=== PATIENT | male | born 1965 | race Caucasian/White ===

== ENCOUNTER 2021-09-17 19:53 | Inpatient (IN) | payer SELFPAY ==
[~2021-09-17] VITALS: Ht 162.6 cm; Wt 71.7 kg
[2021-09-17] MEDS ORDERED: LORazepam 2 MG/ML VIAL IM ONE (20:00)
[2021-09-17] MEDS ORDERED: DIPHENHYDRAMINE INJ 50 MG/ML VIAL IM ONE (20:00)
[2021-09-17] MEDS ORDERED: PHENYTOIN SODIUM INJ 1,000 MG in NS 100 ML IV ONE (20:00)
[2021-09-17] MEDS ORDERED: HALOPERIDOL LACTATE 5 MG/ML VIAL IM ONE ×2 (20:00)
[2021-09-17] MEDS ORDERED: LORazepam 2 MG/ML VIAL ONE (20:06)
[2021-09-17] MEDS ORDERED: HALOPERIDOL LACTATE 5 MG/ML VIAL ONE (20:06)
[2021-09-17] MEDS ORDERED: DIPHENHYDRAMINE INJ 50 MG/ML VIAL ONE (20:07)
[2021-09-17 20:23] VITALS: BP_SYST 156
--- NOTE | 2021-09-17 20:23 | NUR ---
Placed in room 05 . Placed on alarm security or surveillance monitor, blood pressure machine and pulse oximeter. To gown for exam. Side rails up.
--- NOTE | 2021-09-17 20:24 | NUR ---
Patient brought in ALS for 3 witnessed seizures today by son. Vitals Sign WNL. BS 144. Patient is AO x 1 and repeatedly saying "Can you open my ears please?" No other complaints/injuries per patient or as noted.
--- NOTE | 2021-09-17 20:25 | NUR ---
ER Dr. Acosta at bedside examining patient.
--- NOTE | 2021-09-17 20:35 | NUR ---
# 22 gauge angiocath placed to RIGHT HAND. Use of asceptic technique. Opsite placed over site. Blood return noted. Blood for lab drawn from site. Flushed with 10 cc of normal saline. No evidence of infiltration noted. Patient tolerated well.
[2021-09-17] MEDS ORDERED: PHENYTOIN SODIUM 250 MG/5 ML INJ. VIAL IV ONE (20:39)
[2021-09-17 21:11] LABS: CALCIUM 8.7 mg/dL (8.4-11.0); CREATININE 1.04 mg/dL (0.55-1.30); POTASSIUM 3.7 mmol/L (3.5-5.1)
--- NOTE | 2021-09-17 22:03 | NUR ---
returned back from ct scan. Patient tolerated well
--- NOTE | 2021-09-17 22:10 | NUR ---
Patient pulled out IV line and urinated in bed. Patient changed and placed back in [facility]. notified.
[2021-09-17] MEDS ORDERED: PHEN100C4 PO (22:51)
--- NOTE | 2021-09-17 22:52 | NUR ---
Medication reconciliation completed with information provided by son. Any prior medication reconciliation on file was reviewed and corrected.
--- NOTE | 2021-09-17 22:52 | NUR ---
patient is full code.
[2021-09-17 23:06] LABS: BASOPHILS % (AUTO) 0.2 % (0.0-2.0); EOSINOPHILS % (AUTO) 0.1 % (0.0-4.0); HEMATOCRIT 43.3 % (36-54); HEMOGLOBIN 13.9 g/dL (14.0-18.0); LYMPHOCYTES # (AUTO) 0.8 K/uL (1.0-5.5); LYMPHOCYTES % (AUTO) 4.8 % (20.5-51.5); MEAN CORPUSCULAR HEMOGLOBIN 29 pg (27-31); MEAN CORPUSCULAR HGB CONC 32 % (32-36); MEAN CORPUSCULAR VOLUME 89 fL (79.0-98.0); MONOCYTES # (AUTO) 0.8 K/uL (0.0-1.0); MONOCYTES % (AUTO) 4.6 % (1.7-9.3); NEUTROPHILS # (AUTO) 14.9 K/uL (1.8-7.7); NEUTROPHILS % (AUTO) 90.3 % (40.0-70.0); PLATELET COUNT (AUTO) 246 K/uL (130-430); RED BLOOD CELL COUNT(AUTO) 4.88 MIL/uL (4.2-6.2); RED CELL DISTRIBUTION WIDTH 14.2 % (9.0-15.0); WHITE BLOOD COUNT (AUTO) 16.5 K/uL (4.8-10.8)
[2021-09-17 23:10] LABS: ALCOHOL, BLOOD < 3 mg/dL (<10)
--- NOTE | 2021-09-17 23:48 | NUR ---
Patient will be admitted to care of Dr. Phoenix. Admitted to telemetry unit. bed placement pending. Complete and up to date summary report printed. SBAR report to be given at bedside with opportunity for questions.
--- NOTE | 2021-09-18 00:18 | NUR ---
After Multiple attempts to place IV, Patient unable to sit still. MD notified. Ativan 2 mg IM ordered by Dr. Jackson.
[2021-09-18] MEDS ORDERED: LORazepam 2 MG/ML VIAL IVP ONE (00:30)
[2021-09-18] MEDS ORDERED: LORazepam 2 MG/ML VIAL IM ONE (00:30)
--- NOTE | 2021-09-18 00:42 | NUR ---
# 22 gauge angiocath placed to LT HAND. Use of asceptic technique. Opsite placed over site. Blood return noted. Blood for lab drawn from site. Flushed with 10 cc of normal saline. No evidence of infiltration noted. Patient tolerated well.
--- NOTE | 2021-09-18 00:45 | NUR ---
PATIENT ARRIVED WITH NO BELONGINGS ONLY WEARING RED PLAID BOXERS. Addendum: 09/18/21 at 0045 by SDEDCJM AND AVELAR BLANKET
--- NOTE | 2021-09-18 00:50 | NUR ---
PATIENT IS AOX3. ABLE TO FOLLOW COMMANDS.
--- NOTE | 2021-09-18 00:59 | NUR ---
Transfer to [facility] via ACLS protocol. Licensed nurse present. IV present no signs or symptoms of infiltration.
--- NOTE | 2021-09-18 01:33 | NUR ---
ADMIT NOTE Received pt from ER to the floor with a diagnosis of SEIZURE DISORDER. Admission process initiated. patient oriented to pain management, safety and call light-teach back done.
[2021-09-18] MEDS: D5/0.45 NS 1,000 ML IV SCH ×2 (01:40→11:46)
[2021-09-18 01:49] VITALS: BP_SYST 106
--- NOTE | 2021-09-18 05:22 | NUR ---
Consultation Paged Reason for Consultation: seizure disorder Was consult called: Y Person who was notified: Dr. Man text message Consulting Physician: Dr. Man Ordering Physician: Jr Samson
--- NOTE | 2021-09-18 06:52 | NUR ---
CLOSING NOTES Patient resting in bed - no s/s pain or distress noted. Respirations even and unlabored - head of bed elevated. IV site patent - no s/s redness, infection, or infiltration. Seizure precautions in place. Bed locked and in lowest position. Call light within reach - bed alarm on.
--- NOTE | 2021-09-18 07:45 | NUR ---
Opening Notes Patient is awake, alert and oriented x3. No resp distress noted. Breathing is even and unlabored. Pt remains on RA at this time. Seizure precautions in place. No noted seizure activity. Pt denies any pain at this time. IV site on left hand 22 gauge intact at this time. D5 1/2 NS @ 100 cc/hr, infusing well at this time. Pt is ambulatory, steady gait. Pt remains NPO at this time. Scheduled swallow evaluation. All needs met at this time. Safety and fall precautions in place. Bed in lowest position, locked. Will continue to monitor.
[2021-09-18 08:00] VITALS: BP_SYST 136
[2021-09-18] MEDS ORDERED: LORazepam 2 MG/ML VIAL IM PRN (08:15)
--- NOTE | 2021-09-18 09:15 | NUR ---
Nurse updated Melecio cassidy on patient status and plan of care. Melecio (Randal) [phone]
--- NOTE | 2021-09-18 10:00 | NUR ---
Notes Patient is sleeping at this time. No resp distress noted. No signs of seizure activity. Denies any pain. Will continue to monitor.
[2021-09-18 11:34] VITALS: BP_SYST 116
[2021-09-18 11:37] VITALS: BP_SYST 121
--- NOTE | 2021-09-18 12:00 | NUR ---
Notes Patient is sleeping at this time. No resp distress noted. No signs of seizure activity. Denies any pain. Will continue to monitor.
[2021-09-18 12:14] LABS: BASOPHILS # (AUTO) 0.1 K/uL (0.0-0.2); BASOPHILS % (AUTO) 0.7 % (0.0-2.0); EOSINOPHILS # (AUTO) 0.2 K/uL (0.0-0.4); EOSINOPHILS % (AUTO) 1.6 % (0.0-4.0); HEMATOCRIT 42.9 % (36-54); HEMOGLOBIN 14.4 g/dL (14.0-18.0); LYMPHOCYTES # (AUTO) 2.3 K/uL (1.0-5.5); LYMPHOCYTES % (AUTO) 24.1 % (20.5-51.5); MEAN CORPUSCULAR HEMOGLOBIN 29 pg (27-31); MEAN CORPUSCULAR HGB CONC 34 % (32-36); MEAN CORPUSCULAR VOLUME 87 fL (79.0-98.0); MONOCYTES # (AUTO) 0.9 K/uL (0.0-1.0); NEUTROPHILS # (AUTO) 6.2 K/uL (1.8-7.7); NEUTROPHILS % (AUTO) 64.6 % (40.0-70.0); PLATELET COUNT (AUTO) 219 K/uL (130-430); RED BLOOD CELL COUNT(AUTO) 4.92 MIL/uL (4.2-6.2); WHITE BLOOD COUNT (AUTO) 9.6 K/uL (4.8-10.8)
[2021-09-18 12:32] LABS: ALBUMIN 3.5 g/dL (3.4-4.8); BILIRUBIN,DIRECT 0.1 mg/dL (0.0-0.3); CALCIUM 7.9 mg/dL (8.4-11.0); CREATININE 0.89 mg/dL (0.55-1.30); POTASSIUM 3.3 mmol/L (3.5-5.1); TOTAL BILIRUBIN 0.5 mg/dL (0.0-1.0)
--- NOTE | 2021-09-18 14:00 | NUR ---
Notes Patient is awake, alert and oriented x4. No resp distress noted. No signs of seizure activity. Denies any pain. Pt remains NPO. Will continue to monitor.
--- NOTE | 2021-09-18 14:53 | NUR ---
Nutrition Update : Yaakov Scale: 16 noted Pt admitted for Seizure disorder. Diet: NPO BMI: 27.1 kg/m2 RD to follow per nutrition care standards.
[2021-09-18 15:27] VITALS: BP_SYST 116
--- NOTE | 2021-09-18 16:00 | NUR ---
Notes Patient is awake, alert and oriented x4, anxious to go home. No resp distress noted. Breathing is even and unlabored. No signs of pain. Will continue to monitor.
--- NOTE | 2021-09-18 16:21 | NUR ---
ST EVALUATION COMPLETED. ST TX NOT INDICATED AT THIS TIME. RECOMMEND DIET UPGRADE TO PO DIET OF MECHANICAL SOFT/THIN LIQUIDS.
[2021-09-18] MEDS ORDERED: ACETAMINOPHEN 325 MG TABLET PO PRN (18:00)
[2021-09-18] MEDS ORDERED: NALOXONE HCL 0.4 MG/ML AMP (NARCAN) IVP PRN ×2 (18:00)
[2021-09-18] MEDS ORDERED: ONDANSETRON HCL 4 MG/2 ML VIAL IVP PRN (18:00)
[2021-09-18] MEDS ORDERED: HYDROcodone/ACETAMIN 10-325 MG TAB PO PRN (18:00)
[2021-09-18] MEDS ORDERED: HYDROcodone/ACETAMIN 5-325 MG TAB (NORCO/ VICODIN) PO PRN (18:00)
--- NOTE | 2021-09-18 18:00 | NUR ---
iv insertion primary rn makenzie requested for iv insertion. new iv line started on rt hand #22. with good blood return. flushed well. no s/s of infiltration noted. pt tolerated well.
--- NOTE | 2021-09-18 18:03 | NUR ---
Patient is being seen and examined by DR. MARTÍNEZ
--- NOTE | 2021-09-18 18:55 | NUR ---
Closing Notes Patient is awake, alert and oriented x4. Seizure precautions in place, No resp distress noted. Breathing is even and unlabored. Pt denies any pain at this time. Resumed diet: mechanical soft, tolerating well. IV site on right FA 22 gauge intact at this time. D5 1/2 NS @ 100 cc/hr, infusing well at this time. Pt is ambulatory, steady gait. All needs met at this time. Safety and fall precautions in place. Bed in lowest position, locked. Will continue to monitor.
[2021-09-18 20:00] VITALS: BP_SYST 121
[2021-09-18] MEDS ORDERED: PHENYTOIN 100 MG CAPSULE PO SCH (21:00)
[2021-09-18] MEDS ORDERED: NORMAL SALINE 5 ML DISP.SYRIN IVF SCH ×2 (22:00)
--- NOTE | 2021-09-18 22:24 | NUR ---
Patient informed primary RN wanted to leave hospital AMA. Dr. Phoenix paged and informed. No discharge order given. Patient can leave AMA.
--- NOTE | 2021-09-18 22:43 | NUR ---
Earlier, pt's son arrived at hospital to p/u father for d/c home ama. Pt's son aware that his father "forgot" to take medications and consequently had seizures at home. Pt's son encouraged to put emphasis on taking routine medications as ordered and not leaving the possibility of forgetting as a option. Pt campus monitor and saline lock removed. Pt changed into own clothing. All belongings, including cell phone, are in pt's possession. Pt signed AMA document (placed in chart) and then brought to son's private vehicle. Pt left hospital under own power and in stable condition.
== END 2021-09-18 22:40 | disposition left against medical advice (07) | DRG 101 ==
LOC: SED 19:53 → STU 23:45
PROVIDERS: ADMIT Preventive Medicine Preventive Medicine/Occupational Environmental Medicine; ATTEND Preventive Medicine Preventive Medicine/Occupational Environmental Medicine
DX: G40.909 Epilepsy, unspecified, not intractable, without status epilepticus (principal); D72.829 Elevated white blood cell count, unspecified; R73.9 Hyperglycemia, unspecified; Z20.822 Contact with and (suspected) exposure to COVID-19; Z91.19 Patient's noncompliance with other medical treatment and regimen
CPT/HCPCS: 36415; 70450-TC; 76376; 80048; 80053; 80061; 80185; 82248; 83036; 83735; 85025; 92610-GN; 93005; 96365; 96372; 99285; G0378; G0482; J1165; J1200; J1630; J2060

== ENCOUNTER 2022-03-19 12:25 | Emergency (ER) | payer SELFPAY ==
[~2022-03-19] VITALS: Ht 167.6 cm; Wt 68.0 kg
[~2022-03-19 12:25] MED LIST: PHEN100C4 PO
[2022-03-19 12:35] VITALS: BP_SYST 106
--- NOTE | 2022-03-19 12:35 | NUR ---
Patient to ER bed 4 to gown for evaluation. Side rails up.
[2022-03-19] MEDS ORDERED: LORazepam 2 MG/ML VIAL ONE (12:39)
[2022-03-19] MEDS ORDERED: HALOPERIDOL LACTATE 5 MG/ML VIAL ONE (12:40)
[2022-03-19] MEDS ORDERED: PHENYTOIN 100 MG CAPSULE PO ONE (13:15)
[2022-03-19 13:43] LABS: BASOPHILS # (AUTO) 0.1 K/uL (0.0-0.2); BASOPHILS % (AUTO) 0.4 % (0.0-2.0); EOSINOPHILS % (AUTO) 0.4 % (0.0-4.0); HEMATOCRIT 43.2 % (36-54); HEMOGLOBIN 14.2 g/dL (14.0-18.0); LYMPHOCYTES # (AUTO) 1.3 K/uL (1.0-5.5); LYMPHOCYTES % (AUTO) 10.5 % (20.5-51.5); MEAN CORPUSCULAR HEMOGLOBIN 29 pg (27-31); MEAN CORPUSCULAR HGB CONC 33 % (32-36); MEAN CORPUSCULAR VOLUME 87 fL (79.0-98.0); MONOCYTES # (AUTO) 0.6 K/uL (0.0-1.0); NEUTROPHILS % (AUTO) 83.7 % (40.0-70.0); PLATELET COUNT (AUTO) 210 K/uL (130-430); RED BLOOD CELL COUNT(AUTO) 4.98 MIL/uL (4.2-6.2); RED CELL DISTRIBUTION WIDTH 15.1 % (9.0-15.0); WHITE BLOOD COUNT (AUTO) 11.9 K/uL (4.8-10.8)
[2022-03-19 13:52] LABS: ANION GAP 13 (5-15); CALCIUM 8.7 mg/dL (8.4-11.0); CHLORIDE 104 mmol/L (98-107); CREATININE 0.88 mg/dL (0.55-1.30); GLUCOSE 113 mg/dL (70-99); POTASSIUM 3.5 mmol/L (3.5-5.1); SODIUM SERUM 136 mmol/L (136-145); UREA NITROGEN, BLOOD 15 mg/dL (8-21)
[2022-03-19 13:57] LABS: ALANINE AMINOTRANSFERASE 48 U/L (12-78); ALBUMIN 3.8 g/dL (3.4-4.8); ASPARTATE AMINOTRANSFERASE 57 U/L (10-37); TOTAL BILIRUBIN 0.4 mg/dL (0.0-1.0)
[2022-03-19 14:22] LABS: ALCOHOL, BLOOD < 3 mg/dL (<10); GFR AFRICAN AMERICAN 116 mL/min (>90)
[2022-03-19 14:48] VITALS: BP_SYST 128
== END 2022-03-19 15:14 | disposition home or self-care (01) ==
LOC: SED 12:25
DX: R56.9 Unspecified convulsions (principal); Z91.14 Patient's other noncompliance with medication regimen; Z79.899 Other long term (current) drug therapy
CPT/HCPCS: 36415; 80053; 85025; 99283; G0482; J1630; J2060

== ENCOUNTER 2022-05-20 08:25 | Emergency (ER) | payer MEDICAID ==
[~2022-05-20] VITALS: Ht 162.6 cm; Wt 68.0 kg
[2022-05-20] MEDS ORDERED: NACL 0.9% 1,000 ML IV ONE (08:30)
[2022-05-20] MEDS ORDERED: PHENYTOIN SODIUM INJ 1,000 MG in NS 100 ML IV ONE (08:30)
[2022-05-20 08:31] VITALS: BP_SYST 124
[2022-05-20 08:47] LABS: BASOPHILS # (AUTO) 0.1 K/uL (0.0-0.2); BASOPHILS % (AUTO) 0.6 % (0.0-2.0); EOSINOPHILS # (AUTO) 0.3 K/uL (0.0-0.4); EOSINOPHILS % (AUTO) 2.7 % (0.0-4.0); HEMATOCRIT 43.3 % (36-54); HEMOGLOBIN 14.4 g/dL (14.0-18.0); LYMPHOCYTES # (AUTO) 2.2 K/uL (1.0-5.5); LYMPHOCYTES % (AUTO) 21.8 % (20.5-51.5); MEAN CORPUSCULAR HEMOGLOBIN 29 pg (27-31); MEAN CORPUSCULAR HGB CONC 33 % (32-36); MEAN CORPUSCULAR VOLUME 87 fL (79.0-98.0); MONOCYTES % (AUTO) 9.9 % (1.7-9.3); NEUTROPHILS # (AUTO) 6.7 K/uL (1.8-7.7); PLATELET COUNT (AUTO) 209 K/uL (130-430); RED CELL DISTRIBUTION WIDTH 14.3 % (9.0-15.0); WHITE BLOOD COUNT (AUTO) 10.2 K/uL (4.8-10.8)
[2022-05-20 09:00] LABS: ANION GAP 13 (5-15); CALCIUM 8.3 mg/dL (8.4-11.0); CHLORIDE 102 mmol/L (98-107); CREATININE 1.05 mg/dL (0.55-1.30); GLUCOSE 115 mg/dL (70-99); POTASSIUM 3.2 mmol/L (3.5-5.1); SODIUM SERUM 134 mmol/L (136-145); UREA NITROGEN, BLOOD 17 mg/dL (8-21)
[2022-05-20 09:06] LABS: ALANINE AMINOTRANSFERASE 25 U/L (12-78); ALBUMIN 3.4 g/dL (3.4-4.8); ASPARTATE AMINOTRANSFERASE 26 U/L (10-37); TOTAL BILIRUBIN 0.2 mg/dL (0.0-1.0)
[2022-05-20 09:09] LABS: ALCOHOL, BLOOD < 3 mg/dL (<10); GFR AFRICAN AMERICAN 94 mL/min (>90)
[2022-05-20 10:51] VITALS: BP_SYST 109
[2022-05-20] MEDS ORDERED: PHEN100C4 PO (11:17)
== END 2022-05-20 11:26 | disposition home or self-care (01) ==
LOC: SED 08:25
DX: G40.909 Epilepsy, unspecified, not intractable, without status epilepticus (principal); Z79.899 Other long term (current) drug therapy
CPT/HCPCS: 99284; 96365; 80053; 85025; 36415; G0482; J1165

== ENCOUNTER 2022-11-08 07:50 | Emergency (ER) | payer SELFPAY ==
[~2022-11-08] VITALS: Ht 165.1 cm; Wt 680.4 kg
--- NOTE | 2022-11-08 07:50 | NUR ---
PATIENT BIBA TO BED 5 S/P SEIZURE REPORTED BY EMS WITH SOME UNCORAPORATION, PATIENT AAOX4 AT THIS TIME AWAITING FOR EDP FOR INITIAL ASSESSMENT.
--- NOTE | 2022-11-08 07:52 | NUR ---
EDP AT BEDSIDE FOR INITIAL ASSESSMENT.
[2022-11-08 07:55] VITALS: BP_SYST 142
[2022-11-08] MEDS ORDERED: PHENYTOIN SODIUM INJ 500 MG in NS 100 ML IV ONE (08:00)
[2022-11-08] MEDS ORDERED: LORazepam 2 MG/ML VIAL IVP ONE (08:00)
[2022-11-08] MEDS ORDERED: NACL 0.9% 1,000 ML IV ONE (08:00)
[2022-11-08] MEDS ORDERED: PHENYTOIN SODIUM 250 MG/5 ML INJ. VIAL IV ONE (08:21)
[2022-11-08 08:56] LABS: BASOPHILS % (AUTO) 0.4 % (0.0-2.0); EOSINOPHILS # (AUTO) 0.1 K/uL (0.0-0.4); EOSINOPHILS % (AUTO) 0.9 % (0.0-4.0); HEMATOCRIT 42.1 % (36-54); HEMOGLOBIN 14.2 g/dL (14.0-18.0); LYMPHOCYTES # (AUTO) 1.2 K/uL (1.0-5.5); LYMPHOCYTES % (AUTO) 14.4 % (20.5-51.5); MEAN CORPUSCULAR HEMOGLOBIN 29 pg (27-31); MEAN CORPUSCULAR HGB CONC 34 % (32-36); MEAN CORPUSCULAR VOLUME 87 fL (79.0-98.0); MONOCYTES # (AUTO) 0.5 K/uL (0.0-1.0); MONOCYTES % (AUTO) 6.6 % (1.7-9.3); NEUTROPHILS # (AUTO) 6.3 K/uL (1.8-7.7); NEUTROPHILS % (AUTO) 77.7 % (40.0-70.0); PLATELET COUNT (AUTO) 222 K/uL (130-430); RED BLOOD CELL COUNT(AUTO) 4.84 MIL/uL (4.2-6.2); RED CELL DISTRIBUTION WIDTH 13.9 % (9.0-15.0); WHITE BLOOD COUNT (AUTO) 8.1 K/uL (4.8-10.8)
[2022-11-08 09:31] LABS: CALCIUM 8.2 mg/dL (8.4-11.0); CREATININE 0.99 mg/dL (0.55-1.30)
[2022-11-08 09:35] LABS: ALBUMIN 4.1 g/dL (3.4-4.8); PHENYTOIN (DILANTIN) 10.4 ug/mL (10.0-20.0); TOTAL BILIRUBIN 0.5 mg/dL (0.0-1.0)
--- NOTE | 2022-11-08 10:00 | NUR ---
SON PHONE NUMBER [phone]
--- NOTE | 2022-11-08 10:22 | NUR ---
PATIENT CALM IN BED, REPOSITIONNED, WILL CONTINUE TO MONITOR.
[2022-11-08] MEDS ORDERED: PHEN100C4 PO (11:14)
--- NOTE | 2022-11-08 11:19 | NUR ---
[facility] Report filed and faxed to [phone].
--- NOTE | 2022-11-08 11:22 | NUR ---
PER DR GORDON, FAXED OVER [employer] REPORT FORM TO [phone]
--- NOTE | 2022-11-08 11:35 | NUR ---
ALL RESULT BACK EDP REASSESS PATIENT AND D/C HOME WITH INSTRUCTION, SON CALLED TO PICK HIM UP.
--- NOTE | 2022-11-08 12:47 | NUR ---
Patient given written and verbal discharge instructions and verbalizes understanding. ER MD discussed with patient the results and treatment provided. Patient in stable condition. ID arm band removed. IV catheter removed intact and dressing applied, no active bleeding. Rx of PHENYTOIN given. Patient educated on pain management and to follow up with PMD. Pain Scale 0. Opportunity for questions provided and answered. Medication side effect fact sheet provided.
== END 2022-11-08 12:47 | disposition home or self-care (01) ==
LOC: SED 07:50
DX: G40.509 Epileptic seizures related to external causes, not intractable, without status epilepticus (principal); Z79.899 Other long term (current) drug therapy
CPT/HCPCS: 99285; 96365; 70450; 96375; 80053; 80185; 85025; 36415; 93005; 76376; G0482; J2060; J1165

== ENCOUNTER 2023-02-03 03:28 | Emergency (ER) | payer SELFPAY ==
[~2023-02-03] VITALS: Ht 170.2 cm; Wt 63.5 kg
[2023-02-03 03:32] VITALS: BP_SYST 120
[2023-02-03] MEDS ORDERED: HALOPERIDOL LACTATE 5 MG/ML VIAL ONE (03:39)
[2023-02-03] MEDS ORDERED: DIPHENHYDRAMINE INJ 50 MG/ML VIAL ONE (03:40)
[2023-02-03] MEDS ORDERED: LORazepam 2 MG/ML VIAL ONE (03:41)
[2023-02-03] MEDS ORDERED: LORazepam 2 MG/ML VIAL IM ONE (03:45)
[2023-02-03] MEDS ORDERED: HALOPERIDOL LACTATE 5 MG/ML VIAL IM ONE (03:45)
[2023-02-03] MEDS ORDERED: DIPHENHYDRAMINE INJ 50 MG/ML VIAL IM ONE (03:45)
[2023-02-03] MEDS ORDERED: levETIRAcetam 1,000 MG IV BAG 100 ML IV ONE (04:15)
[2023-02-03] MEDS: levETIRAcetam 500 MG TABLET PO ONE (05:00)
[2023-02-03] MEDS ORDERED: LEVE500T9 PO (05:02)
[2023-02-03] MEDS ORDERED: levETIRAcetam 500 MG TABLET ONE ×2 (05:14→09:24)
[2023-02-03 10:09] VITALS: BP_SYST 120
== END 2023-02-03 10:08 | disposition home or self-care (01) ==
LOC: SED 03:28
DX: G40.909 Epilepsy, unspecified, not intractable, without status epilepticus (principal); Z79.899 Other long term (current) drug therapy
CPT/HCPCS: 99284; 96372; J1200; J1630; J1953; J2060